=== PATIENT | male | born 1935 | race Caucasian/White ===

== ENCOUNTER 2023-04-23 15:43 | Emergency (ER) | payer OTHER ==
[2023-04-23 16:02] VITALS: BP 145/103; PULSE 120; RESP 18; TEMP 98; BMI 25.1
[2023-04-23] MEDS ORDERED: oxyCODONE HCL 5 MG TABLET PO ONE (16:27)
[2023-04-23] MEDS ORDERED: oxyCODONE HCL 5 MG TABLET ONE (17:15)
[2023-04-23] MEDS ORDERED: LIDOCAINE HCL 2% (20ML MULTI-DOSE VIAL) ONE (19:44)
== END 2023-04-23 21:25 | disposition home or self-care (01) ==
LOC: FER 15:43
DX: S52.612A Displaced fracture of left ulna styloid process, initial encounter for closed fracture (principal); S52.502A Unspecified fracture of the lower end of left radius, initial encounter for closed fracture; M25.532 Pain in left wrist; M25.432 Effusion, left wrist; W01.0XXA Fall on same level from slipping, tripping and stumbling without subsequent striking against object, initial encounter
CPT/HCPCS: 73090-TC-LT-FY; 73110-TC-LT-FY; 73130-TC-LT-FY; 99283-25